=== PATIENT | male | born 1960 | race Caucasian/White ===

== ENCOUNTER 2024-04-28 11:04 | Emergency (ER) | payer MEDICARE, OTHER, SELFPAY ==
[2024-04-28 11:12] VITALS: BP 178/99; PULSE 75; RESP 18; O2SAT 97; BMI 31.0
--- NOTE | 2024-04-28 11:30 | ED.GENADULT ---
HPI - General Adult General Chief complaint: Neuro Symptoms/Altered Deficit Stated complaint: right side face numbness Time Seen by Provider: 04/28/24 11:30 History of Present Illness HPI narrative: Here with Nanette. Yesterday when brushing his teeth, was having difficulty spitting in the sink. Denies pain. No difficulty speaking. No gait difficulties. Right sides facial droop noted. LKW?yesterday AM. 63-year-old man presenting to the emergency department with concern of feeling like his right side face is somewhat asleep and drooping. This was initially most noticeable yesterday morning when brushing his teeth where he was having trouble spitting. No weakness or loss of sensation elsewhere. No blisters noted. No ear pain. No visual disturbance. Related Data Previous Rx's ?Medication ?Instructions ?Recorded prednisone 20 mg tablet 30 mg (1.5 x 20 mg) PO BID 6 days 04/28/24 #18 tabs valacyclovir 1 gram tablet 1,000 mg PO TID 7 days #21 tabs 04/28/24 Allergies Allergy/AdvReac Type Severity Reaction Status Date / Time No Known Drug Allergies Allergy Verified 04/28/24 11:18 Review of Systems Status of ROS: Reports: 6 or more systems reviewed and unremarkable except as noted in History and below Exam Narrative: Exam Narrative: Pleasant. NAD. Speaking easily. There does appear to be loss of motor tone generally over the right side of his face. Diminished blink. Most notable weakness over the lower face however. Pupils are brisk and equal. Oropharynx is without lesions. Skin is without rash/lesions. Ear canals clear of lesions. Const: Vital Signs, click to edit/add: Vital Signs - 24 hr 04/28/24 11:12 Pulse Rate [Right Pulse Oximeter] 75 Respiratory Rate 18 Blood Pressure [Ri ght Upper Arm] 178/99 H Pulse Oximetry 97 Oxygen Delivery Me thod Room Air Documenting provider has reviewed patient's vital signs: yes Course Vital Signs Vital signs: Initial Vital Signs Temperature Source Oral 04/28/24 11:12 Pulse Rate 75 04/28/24 11:12 Pulse Rhythm Regular 04/28/24 11:12 Pulse Strength 3+ Normal 04/28/24 11:12 Respiratory Rate 18 04/28/24 11:12 Blood Pressure 178/99 H 04/28/24 11:12 Blood Pressure Mean 125 H 04/28/24 11:12 Blood Pressure Position Sitting 04/28/24 11:12 Pulse Oximetry 97 04/28/24 11:12 Oxygen Delivery Method Room Air 04/28/24 11:12 Vital Signs Pulse Rate 75 04/28/24 11:12 Respiratory Rate 18 04/28/24 11:12 Blood Pressure 178/99 H 04/28/24 11:12 Pulse Oximetry 97 04/28/24 11:12 Oxygen Delivery Method Room Air 04/28/24 11:12 Pulse Rate 75 04/28/24 11:12 Respiratory Rate 18 04/28/24 11:12 Blood Pressure 178/99 H 04/28/24 11:12 Pulse Oximetry 97 04/28/24 11:12 Oxygen Delivery Method Room Air 04/28/24 11:12 Medical Decision Making MDM Narrative Medical decision making narrative: This really would appear to be Joy's palsy. No lesions indicate [place]. I think this is a better answer than any other deeper neurological problem. Discussed etiology and course expectation and potential treatment. See patient discharge plan for further discussion Discharge Plan Discharge Clinical Impression: Joy's palsy Instructions: Joy Palsy (ED) Additional Instructions: Need to keep eye moist with drops/ointment like generic eye ointment or Refresh PM. Be sure to place before bed. Consider also eye patching at night. Sending prescription for valacyclovir, an antiviral, and for prednisone; as a steroid this can be stimulating. Prescriptions: New prednisone 20 mg tablet 30 mg PO BID 6 Days Qty: 18 0RF valacyclovir 1 gram tablet 1,000 mg PO TID 7 Days Qty: 21 0RF Follow Up/Referrals: Vinicius Cannon MD [Staff Physician] - Stand Alone Forms: [facility] Info Instructions
== END 2024-04-28 12:09 | disposition home or self-care (01) ==
PROVIDERS: Emergency Provider Family Medicine
DX: G51.0 Bell's palsy (principal)
CPT/HCPCS: 99283; 99284

== ENCOUNTER 2024-05-12 08:59 | Outpatient (CLI) | payer MEDICARE, OTHER, SELFPAY | END 2024-05-12 09:00 | disposition home or self-care (01) | PROVIDERS: PCP Family Medicine; Visit Provider Family Medicine | DX: E78.5 Hyperlipidemia, unspecified (principal); I10 Essential (primary) hypertension; Z13.29 Encounter for screening for other suspected endocrine disorder | CPT/HCPCS: 80053; 80061; 84443 ==

== ENCOUNTER 2024-06-08 07:00 | Outpatient (CLI) | payer MEDICARE, OTHER, SELFPAY ==
--- OUTSIDE RECORDS SUMMARY | 2024-06-08 07:06 | XMS_ITS | Clinical Summary ---
Author Organization [facility] Address [place], [place] [address] Care Team Providers Care Salesperson Women[employer] Name Role Phone Vinicius Cannon MD Primary Care Provider [phone] Allergies No known active allergies Medications Medication Sig Dispensed Refills Start Date End Date Status cholecalciferol (VITAMIN D) 1,000 unit capsule Take 1 capsule by mouth once daily. 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 Encounters Date Type Department Care Team Description 04/28/2024 Nurse Triage [facility] [address] [place] [address] Vinicius Cannon MD Neurologic Problem from Last 3 Months Social History Tobacco Use Types Packs/Day Years Used Date Smoking Tobacco: Former Cigarettes Tobacco Cessation:Counseling Given: Yes Alcohol Use Standard Drinks/Week Comments Yes 0 (1 standard drink = 0.6 oz pur e alcohol) rare Sex and Gender Information Value Date Recorded Sex Assigned at Not on file Gender Identity Not on file Sexual Orientation Not on file Obstetrics History Last Filed Vital Signs Vital Sign Reading Time Taken Comments Blood Pressure 115/72 01/10/2017 2:50 PM CDT Pulse 70 01/10/2017 2:50 PM CDT Temperature 36.9 C (98.5 F) 01/10/2017 2:50 PM CDT Respiratory Rate 22 07/27/2014 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 Oxygen Saturation 98% 01/10/2017 2:50 PM CDT Inhaled Oxygen Concentration - - Weight 110 kg (242 lb 8 oz) 01/10/2017 2:50 PM C DT Height 183.6 cm (6' 0.28) 01/10/2017 2:50 PM CD T Body Mass Index 32.63 01/10/2017 2:50 PM CDT Plan of Treatment Health Maintenance Due Date Last Done Comments Tdap 1969 HIV for age 15-65 1973 Hepatitis C screening for ag e 18-79 1976 Tetanus booster 1978 Colonoscopy through age 75 10/21/2003 Zoster (shingles) series for age 50+ (1 of 2) 2008 BMI (ht and wt on same day) for age 18+ 01/10/2018 01/10/2017 Depression screening for age 12+ 01/10/2018 01/11/20 17 Lipids for age 45-75 11/23/2019 11/22/2014, 11/26/2012, 10/30/2010, Additional history exists Pneumococcal series for age 65+ (1 of 1 - PCV) 10/21/2023 COVID-19 vaccine series ( - 2023-25 season) 2024 Influenza for age 65+ 03/07/2024 Procedures Procedure Name Priority Date/Time Associated Diagnosis Comments LIPID PANEL W REFLEX MEASURED LDL Routine 11/22/2014 9:16 AM CDT EPISODIC MOOD DISORDER from Last 3 Months or Most Recently Relevant to Health Maintenance Results * (ABNORMAL) LIPID PANEL W REFLEX MEASURED LDL (11/22/2014 9:16 AM CDT) CHOLESTEROL,TOTAL 165 100 - 199 mg/dL 11/22/2014 10:21 AM CDT [facility] TRIGLYCERIDES 253(H) <150 mg/dL 11/22/2014 10:21 AM CDT [facility] HDL CHOLESTEROL 36(L) >40 mg/dL 5 10:21 AM CDT [facility] NON-HDL CHOLESTEROL 129 <145 mg/dl 11/22/2014 10:21 AM T [facility] CHOL/HDL RATIO 4.58(H) <4.50 11/22/2014 10:21 AM T [facility] LDL CHOLESTEROL 78 <=130 mg/dL 11/22/2014 10:21 AM T [facility] PATIENT STATUS FASTING 11/22/2014 10:21 AM T [facility] Blood specimen (specimen) BLOOD SPECIMEN / Unknown Venipuncture / Unknown 11/22/2014 9:16 AM CDT 11/22/2014 9:17 AM CDT Tyree Pappas MD CHEMISTRY [facility] [address] [place] [address], from Last 3 Months or Most Recently Relevant to Health Maintenance Care Teams Salesperson Women'S Hats Relationship Specialty Start Date End Date Vinicius Cannon MD PCP - General Family Practice 07/27/14
--- NOTE | 2024-06-08 07:15 | CRLHL7_ITS ---
For Patients: As a result of the Century Cures Act, medical imaging exams and procedure reports are released immediately into your electronic medical record. You may view this report before your referring provider. If you have questions, please contact your health care provider. Examination: US abdominal aorta Indication: Abdominal aortic aneurysm screening. Technique: Díaz scale and color Doppler images of the aorta and common iliac arteries are obtained. 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 Dictated by Guero Rosa MD @ 06/08/2024 11:27:21 AM (Electronically Signed)
== END 2024-06-08 07:01 | disposition home or self-care (01) ==
LOC: US 07:04
PROVIDERS: PCP Family Medicine; Visit Provider Family Medicine
DX: Z13.6 Encounter for screening for cardiovascular disorders (principal); I71.40 Abdominal aortic aneurysm, without rupture, unspecified; Z87.891 Personal history of nicotine dependence
CPT/HCPCS: 76706

== ENCOUNTER 2025-06-07 08:08 | Outpatient (CLI) | payer MEDICARE, OTHER, SELFPAY | END 2025-06-07 08:09 | disposition home or self-care (01) | LOC: NFLDREF 06-10 08:58 | PROVIDERS: PCP Family Medicine; Referring Provider Family Medicine; Visit Provider Family Medicine | DX: E78.5 Hyperlipidemia, unspecified (principal) | CPT/HCPCS: 80053; 80061 ==

== ENCOUNTER 2025-06-20 07:59 | Outpatient (CLI) | payer MEDICARE, OTHER, SELFPAY ==
--- NOTE | 2025-06-20 08:58 | P.ANES_ITS ---
Anesthesia Charges Start Date/Time Anesthesia Start Date: 06/20/25 Anesthesia Start Time: 08:29 Stop Date/Time Anesthesia Stop Date: 06/20/25 Anesthesia Stop Time: 08:56 Coding CPT Codes CPT Codes: FILIPPO LWR INTST NDSC NOS - [id number] ([id number]) P2 - PATIENT W/MILD SYST DISEASE, QK - ORCHID TRANSPLANTER 2-4 CNCRNT ANES PROC, QX - FORMWORK CARPENTER SVC W/ MD MED DIRECTION
--- NOTE | 2025-06-20 08:58 | W.ANESCHARGE ---
Anesthesia Charges Start Date/Time Anesthesia Start Date: 06/20/25 Anesthesia Start Time: 08:29 Stop Date/Time Anesthesia Stop Date: 06/20/25 Anesthesia Stop Time: 08:56 Coding CPT Codes CPT Codes: FILIPPO LWR INTST NDSC NOS - [id number] ([id number]) P2 - PATIENT W/MILD SYST DISEASE, QK - TERMINOLOGIST 2-4 CNCRNT ANES PROC, QX - CLINICAL CARE MANAGER SVC W/ MD MED DIRECTION
--- NOTE | 2025-06-20 09:12 | P.ANES_ITS ---
Anesthesia Charges Start Date/Time Anesthesia Start Date: 06/20/25 Anesthesia Start Time: 08:29 Stop Date/Time Anesthesia Stop Date: 06/20/25 Anesthesia Stop Time: 08:56 Coding CPT Codes CPT Codes: FILIPPO LWR INTST NDSC NOS - [id number] ([id number]) P2 - PATIENT W/MILD SYST DISEASE, QK - SALES ASSOCIATE 2-4 CNCRNT ANES PROC, QX - BELT MAKER HELPER SVC W/ MD MED DIRECTION
--- NOTE | 2025-06-20 09:12 | W.ANESCHARGE ---
Anesthesia Charges Start Date/Time Anesthesia Start Date: 06/20/25 Anesthesia Start Time: 08:29 Stop Date/Time Anesthesia Stop Date: 06/20/25 Anesthesia Stop Time: 08:56 Coding CPT Codes CPT Codes: FILIPPO LWR INTST NDSC NOS - [id number] ([id number]) P2 - PATIENT W/MILD SYST DISEASE, QK - ENERGY ENGINEER 2-4 CNCRNT ANES PROC, QX - AMBULATORY ANALYST SVC W/ MD MED DIRECTION
== END 2025-06-20 08:00 | disposition home or self-care (01) ==
LOC: OP CLINIC 08:00
PROVIDERS: PCP Family Medicine; Visit Provider Internal Medicine
DX: Z12.11 Encounter for screening for malignant neoplasm of colon (principal); D12.3 Benign neoplasm of transverse colon; D12.5 Benign neoplasm of sigmoid colon
CPT/HCPCS: 00811; 00812; 45380; J2704